=== PATIENT | female | born 1950 ===

== ENCOUNTER 2020-06-11 11:41 | Outpatient (CLI) | payer MEDICARE ==
--- NOTE | 2020-06-11 15:44 | Mammography Report ---
DEXA BONE DENSITY SCAN INDICATION / CLINICAL INFORMATION: M89.9Disorder of bone, unspecified. 70 years Female COMPARISON: None available. LUMBAR SPINE, L1-L4: - Bone mineral density (BMD) = 0.855 g/cm2. - T-score = -1.7 - Z-score = 0.4 Change (%) since most recent prior (if available): None available. LEFT HIP, NECK : - Bone mineral density (BMD) = 0.596 g/cm2. - T-score = -2.3 - Z-score = -0.4 Change (%) since most recent prior (if available): None available. 10-YEAR FRACTURE RISK (FRAX) (%) based on LEFT FEMUR - Major Osteoporotic Fracture / Hip Fracture: 7.3% / 1.6% IMPRESSION: 1. WHO Classification: Osteopenia. Fracture Risk: Increased. BMD Reporting Guidelines (ISCD, 2015) BMD Reporting in Postmenopausal Women and in Men Age 50 and Older - T-scores are preferred. - The WHO densitometric classification is applicable. BMD Reporting in Females Prior to Menopause and in Males Younger Than Age 50 - Z-scores, not T-scores, are preferred. This is particularly important in children. - A Z-score of -2.0 or lower is defined as below the expected range for age, and a Z-score above -2.0 is within the expected range for age. - Osteoporosis cannot be diagnosed in men under age 50 on the basis of BMD alone. - The WHO diagnostic criteria may be applied to women in the menopausal transition. http://www.iscd.org/official-positions/6742-tywe-hrqitjsx-positions-adult/ Signer Name: Gonzales Liriano MD Signed: 06/11/2020 3:39 PM Workstation Name: [id number]
== END 2020-06-11 11:42 | disposition home or self-care (01) ==
LOC: MAMMO 11:41
PROVIDERS: ATTEND Internal Medicine Hematology & Oncology
DX: M89.9 Disorder of bone, unspecified (principal); M81.0 Age-related osteoporosis without current pathological fracture
CPT/HCPCS: 77080